=== PATIENT | male | born 1995 | race Caucasian/White ===

== ENCOUNTER 2017-06-25 09:41 | Emergency (ER) | payer OTHER ==
[2017-06-25] MEDS ORDERED: Sodium Chloride 0.9% 1,000 ML IV ONE ×2 (10:30→11:54)
[2017-06-25] MEDS ORDERED: Sodium Chloride 0.9% 1,000 ML ONE (10:40)
--- NOTE | 2017-06-25 10:42 | C.PDOC ---
History Of Present Illness 21yo male with no past medical history, presents to the ER with complaints of epigastric pain with associated nausea and vomiting for the past 2 days. Patient is able to tolerate minimal amount of fluids but unable to tolerate any solid intake. He denies any history of abdominal surgeries in the past. No other complaints. PMD: Time Seen by Provider: 06/25/17 10:25 Chief Complaint (Nursing): Abdominal Pain History Per: Patient History/Exam Limitations: no limitations Onset/Duration Of Symptoms: Days (2) Current Symptoms Are (Timing): Still Present Location Of Pain/Discomfort: Epigastric Associated Symptoms: Nausea, Vomiting. denies: Fever, Chills Additional History Per: Patient Past Medical History Reviewed: Historical Data, Nursing Documentation, Vital Signs Vital Signs: Last Vital Signs Temp 99 F 06/25/17 09:48 Pulse 96 H 06/25/17 09:48 Resp 20 06/25/17 09:48 BP 127/79 06/25/17 09:48 Pulse Ox 99 06/25/17 13:20 - Medical History PMH: No Chronic Diseases Surgical History: No Surg Hx Denies: Appendectomy, Cholecystectomy Family History: States: No Known Family Hx - Social History Hx Alcohol Use: Yes Hx Substance Use: No - Immunization History Hx Tetanus Toxoid Vaccination: Yes Hx Influenza Vaccination: No Hx Pneumococcal Vaccination: No Review Of Systems Except As Marked, All Systems Reviewed And Found Negative. Constitutional: Negative for: Fever, Chills Gastrointestinal: Positive for: Nausea, Vomiting, Abdominal Pain Physical Exam - Physical Exam Appears: Non-toxic Skin: Normal Color, Warm, Dry Head: Atraumatic, Normacephalic Eye(s): bilateral: Normal Inspection, PERRL, EOMI Oral Mucosa: Moist Neck: Normal ROM, Supple Chest: Symmetrical Cardiovascular: Rhythm Regular Respiratory: Normal Breath Sounds Gastrointestinal/Abdominal: Normal Exam, Bowel Sounds, Soft, No Tenderness, Other (patient had an episode of emesis in the ER) Extremity: Normal ROM Neurological/Psych: Oriented x3 ED Course And Treatment - Laboratory Results Result Diagrams: 06/25/17 11:03 06/25/17 11:03 Lab Interpretation: Normal (ua neg.) ECG: Interpreted By Ca ECG Rhythm: Sinus Rhythm O2 Sat by Pulse Oximetry: 99 (RA) Pulse Ox Interpretation: Normal - Radiology CXR: Interpreted by Me CXR Interpretation: Yes: No Acute Disease - Other Rad abd x 2 X-Ray: Interpreted by Me, Read By Radiologist (neg) Progress Note: protonix, IVF Reevaluation Time: 13:52 Reassessment Condition: Improved Medical Decision Making Medical Decision Making: Impression: Abdominal pain w/ vomiting Plan: -- Labs -- IV fluids -- Protonix 40mg IV -- Toradol 30mg IV -- XR Abdomen Time: 1040 XR abdomen reviewed with questionable mass. CT Abdomen and Pelvis w/ IV contrast ordered 1400: initially concerned about abd mass (due to pt's poor apetite and very thin build) so CT abd ordered may be superimposed GB in ABD/liver area, which was neg. Consider gastritis limiting apetite, outpatient upper endoscopy PRN Disposition Doctor Will See Patient In The: Office Counseled Patient/Family Regarding: Studies Performed, Diagnosis - Disposition Disposition: HOME/ ROUTINE Disposition Time: 13:55 Condition: GOOD Forms: [facility] (Paraguayan) - Clinical Impression Clinical Impression: Nausea & vomiting - Scribe Statement The provider has reviewed the documentation as recorded by the Scribe (Jessika Gutiérrez) Provider Attestation: All medical record entries made by the Scribe were at my direction and personally dictated by me. I have reviewed the chart and agree that the record accurately reflects my personal performance of the history, physical exam, medical decision making, and the department course for this patient. I have also personally directed, reviewed, and agree with the discharge instructions and disposition.
--- NOTE | 2017-06-25 11:08 | RAD ---
PROCEDURE: Radiographs of the chest and abdomen (obstructive series) that the HISTORY: abd pain COMPARISON: No prior. TECHNIQUE: AP radiograph of the chest, with upright and supine radiographs of the abdomen. FINDINGS: CHEST: Lungs: Clear. Cardiovascular: Normal size heart. No pulmonary vascular congestion. Pleura: No pleural fluid. No pneumothorax. Other findings: None. ABDOMEN AND PELVIS: Bowel: Moderate amount of stool seen within the descending and rectosigmoid consistent with mild fecal retention/ constipation. . No evidence of mechanical obstruction. Free air: None. Bones: Unremarkable. Other findings: There is a faint ill-defined somewhat elliptical shaped radiopaque density in the mid upper abdomen of uncertain etiology. Recommend followup CT scan of the abdomen and pelvis. Note made of a few small calcifications overlying the inferior true pelvis bilaterally, consistent with calcified pelvic phleboliths. IMPRESSION: Unremarkable radiograph of chest. Moderate amount of stool seen within the descending and rectosigmoid consistent with mild fecal retention/ constipation. . No evidence of mechanical obstruction. There is a faint ill-defined somewhat elliptical shaped radiopaque density in the mid upper abdomen of uncertain etiology. Recommend followup CT scan of the abdomen and pelvis.
[2017-06-25 11:10] LABS: URINE BILIRUBIN NEGATIVE (NEGATIVE); URINE BLOOD NEGATIVE (NEGATIVE); URINE CLARITY Clear (Clear); URINE COLOR Yellow (YELLOW); URINE GLUCOSE (UA) NORMAL (Normal); URINE LEUKOCYTE ESTERASE NEG Leu/uL (Negative); URINE PROTEIN NEGATIVE (NEGATIVE); URINE UROBILINOGEN NORMAL mg/dL (0.2-1.0)
[2017-06-25 11:16] LABS: BASO # 0.1 K/uL (0.0-0.2); BASO % 0.7 % (0.0-2.0); EOS % 0.4 % (0.0-4.0); HEMOGLOBIN 15.6 g/dL (12.0-18.0); LYMPH # 1.3 K/uL (1.0-4.3); LYMPH % 16.4 % (20.0-40.0); MEAN CELL VOLUME 90.4 fL (80.0-94.0); MEAN CORPUSCULAR HEMOGLOBIN 31.4 pg (27.0-31.0); MEAN CORPUSCULAR HGB CONC 34.7 g/dL (33.0-37.0); MEAN PLATELET VOLUME 8.8 fL (7.2-11.7); MONO # 0.8 K/uL (0.0-0.8); MONO % 10.3 % (0.0-10.0); NEUT # 5.5 K/uL (1.8-7.0); NEUT % 72.2 % (50.0-75.0); RBC 4.97 Mil/uL (4.40-5.90); RED CELL DISTRIBUTION WIDTH 12.3 % (11.5-14.5); WHITE BLOOD COUNT 7.7 K/uL (4.8-10.8)
[2017-06-25 11:30] LABS: ALB/GLOB RATIO 1.8 (1.0-2.1); ALBUMIN 5.3 g/dL (3.5-5.0); ALT/SGPT 24 U/L (21-72); AST/SGOT 28 U/L (17-59); BLOOD UREA NITROGEN 8 mg/dL (9-20); CALCIUM 9.5 mg/dl (8.6-10.4); GFR AFRICAN-AMERICAN > 60; GFR NON-AFRICAN AMERICAN > 60; LIPASE 81 U/L (23-300)
[2017-06-25] MEDS ORDERED: Iodixanol 320 MG/ML 100 ML BOTTLE IV ONE (12:46)
--- NOTE | 2017-06-25 13:40 | CT ---
PROCEDURE: CT Abdomen and Pelvis with contrast HISTORY: epigastric/n/v/very thin, ? epigastric mass COMPARISON: None. TECHNIQUE: Contrast dose: 100 mL Visipaque 320 Radiation dose: Total exam DLP = 232.9 mGy-cm. This CT exam was performed using one or more of the following dose reduction techniques: Automated exposure control, adjustment of the mA and/or kV according to patient size, and/or use of iterative reconstruction technique. FINDINGS: LOWER THORAX: Unremarkable. LIVER: Too small to characterize 7 mm right hepatic dome hypo attenuating structure. No gross lesion or ductal dilatation. GALLBLADDER AND BILE DUCTS: Unremarkable. PANCREAS: Unremarkable. No gross lesion or ductal dilatation. SPLEEN: Unremarkable. ADRENALS: Unremarkable. No mass. KIDNEYS AND URETERS: Unremarkable. No hydronephrosis. No solid mass. VASCULATURE: Unremarkable. No aortic aneurysm. BOWEL: Unremarkable. No obstruction. No gross mural thickening. APPENDIX: Normal appendix. PERITONEUM: Unremarkable. No free fluid. No free air. LYMPH NODES: Unremarkable. No enlarged lymph nodes. BLADDER: Unremarkable. REPRODUCTIVE: Unremarkable. BONES: No acute fracture. OTHER FINDINGS: None. IMPRESSION: Unremarkable contrast enhanced CT of the abdomen and pelvis. No CT correlate to radiograph findings.
[2017-06-25 14:39] VITALS: BP 106/73; PULSE 78; RESP 18; TEMP 98; O2SAT 98
== END 2017-06-25 14:39 | disposition home or self-care (01) ==
LOC: C.ER 09:41
DX: R11.2 Nausea with vomiting, unspecified (principal)
CPT/HCPCS: 74022; 74177; 80053; 81001; 83690; 85025; 96361; 96374; 96375; 99285; C9113; J1885; J7040; Q9967